=== PATIENT | female | born 1975 | race Caucasian/White ===

== ENCOUNTER 2019-03-09 11:42 | Emergency (ER) | payer OTHER ==
[2019-03-09 11:57] VITALS: TEMP 98.2; BMI 30.2
--- NOTE | 2019-03-09 12:38 | PDOC ---
History of Present Illness <Shirley Rosas - Last Filed: 03/09/19 15:32> - General History Source: Patient Exam Limitations: No Limitations - History of Present Illness Initial Comments: 43 y/o F, w/ no significant pmh, presents to the ED from her PCP's office for an abnormal ekg and difficulty breathing. As per pt, she recently recovered from a cold with productive cough and has since been experiencing some difficulty breathing. In the ED, r/p EKG shows nsr with no abnormal findings. Pt 's is no longer symptomatic and only experienced a 3/10 chest pain in the PCP office. Denies f/c/n/v/d/abdominal pain. 03/09/19 12:58 03/09/19 13:00 Associated Symptoms: reports: denies symptoms, chest pain (mild, 3/10, now resolved ), shortness of breath (mild, now resolved). denies: cough, diaphoresis, fever/chills, headaches, nausea/vomiting <Neo Baugh - Last Filed: 03/09/19 15:35> - General Chief Complaint: Chest Pain Stated Complaint: CP Time Seen by Provider: 03/09/19 12:18 Past History <Shirley Rosas - Last Filed: 03/09/19 15:32> - Travel Traveled outside of the country in the last 30 days: No Close contact w/someone who was outside of country & ill: No - Past Medical History Anemia: No Asthma: No Cardiac Disorders: No COPD: No Other medical history: DENIES - Immunization History Immunization Up to Date: No - Psycho Social/Smoking Cessation Hx Smoking History: Unknown if ever smoked Hx Alcohol Use: No Drug/Substance Use Hx: No <Neo Baugh - Last Filed: 03/09/19 15:35> - Past Medical History Allergies/Adverse Reactions: Allergies Allergy/AdvReac Type Severity Reaction Status Date / Time No Known Allergies Allergy Verified 03/09/19 11:51 Home Medications: Ambulatory Orders NK [No Known Home Medication] 03/09/19 Review of Systems - Review of Systems Able to Perform ROS?: Yes Is the patient limited Uzbek proficient: No Constitutional: Yes: Symptoms Reported. No: Chills, Diaphoresis, Fever, Loss of Appetite HEENTM: Yes: Symptoms Reported. No: Blurred Vision Respiratory: Yes: Symptoms reported, Shortness of Breath (mild). No: Cough, Orthopnea, Wheezing, Productive cough Cardiac (ROS): Yes: Symptoms Reported, Chest Pain (mild, 3/10) ABD/GI: Yes: Symptoms Reported. No: Diarrhea, Nausea, Vomiting : Yes: Symptoms Reported. No: Dysuria <Neo Baugh - Last Filed: 03/09/19 15:35> *Physical Exam - Vital Signs Last Vital Signs Temp Pulse Resp BP Pulse Ox 98.2 F 81 18 125/85 99 03/09/19 11:45 03/09/19 15:25 03/09/19 15:25 03/09/19 15:25 03/09/19 15:25 <Shirley Rosas - Last Filed: 03/09/19 15:32> - Vital Signs Last Vital Signs Temp Pulse Resp BP Pulse Ox 98.2 F 75 18 122/90 100 03/09/19 11:45 03/09/19 11:45 03/09/19 11:45 03/09/19 11:45 03/09/19 11:45 - Physical Exam General Appearance: Yes: Nourished, Appropriately Dressed HEENT: positive: EOMI, TRAN, Normal ENT Inspection, Pharynx Normal Neck: positive: Trachea midline, Normal Thyroid, Supple. negative: Lymphadenopathy (R), Lymphadenopathy (L) Respiratory/Chest: positive: Lungs Clear, Normal Breath Sounds. negative: Crackles, Wheezing Cardiovascular: positive: Regular Rhythm, Regular Rate, S1, S2. negative: Murmur, Gallop/S3, Gallop/S4 Vascular Pulses: Dorsalis-Pedis (R): 2+, Doralis-Pedis (L): 2+ Gastrointestinal/Abdominal: positive: Normal Bowel Sounds, Soft <Neo Baugh - Last Filed: 03/09/19 15:35> ED Treatment Course - LABORATORY CBC & Chemistry Diagram: 03/09/19 12:50 03/09/19 12:50 - ADDITIONAL ORDERS Additional order review: Laboratory Results 03/09/19 03/09/19 12:50 12:34 Sodium 139 Potassium 4.0 Chloride 109 H Carbon Dioxide 23 Anion Gap 8 BUN 9.8 Creatinine 0.6 Est GFR (CKD-EPI)AfAm 129.39 Est GFR (CKD-EPI)NonAf 111.64 Random Glucose 84 Calcium 8.6 Total Bilirubin 0.3 AST 23 ALT 32 Alkaline Phosphatase 61 Troponin I < 0.02 B-Natriuretic Peptide 24.2 Total Protein 7.7 Albumin 3.7 Serum , Qual Negative 03/09/19 12:50 RBC 4.49 MCV 85.2 MCHC 33.5 RDW 14.1 MPV 7.2 L Neutrophils % 60.2 Lymphocytes % 31.1 Monocytes % 6.3 Eosinophils % 1.6 Basophils % 0.8 - RADIOLOGY Radiology Studies Ordered: Category Date Time Status CHEST PA & LAT [RAD] Stat Radiology 03/09/19 12:23 Taken <Shirley Rosas - Last Filed: 03/09/19 15:32> - LABORATORY CBC & Chemistry Diagram: 03/09/19 12:50 03/09/19 12:50 <Neo Baugh - Last Filed: 03/09/19 15:35> Medical Decision Making - Medical Decision Making 43 y/o F, w/ no significant pmh, presents to the ED from her PCP's office for an abnormal ekg and difficulty breathing #Mild atypical chest pain r/o ACS trops ordered r/p EKG : NSR #Difficulty breathing likely 2/2 to recent URI now resolved CBC, CMP CXR ordered 03/09/19 13:02 <Neo Baugh - Last Filed: 03/09/19 15:35> Discharge - Discharge Information Problems reviewed: Yes - Admission No <Shirley Rosas - Last Filed: 03/09/19 15:32> <Neo Baugh - Last Filed: 03/09/19 15:35> - Discharge Information Clinical Impression/Diagnosis: Chest pain Qualifiers: Chest pain type: unspecified Qualified Code(s): R07.9 - Chest pain, unspecified Condition: Improved Disposition: HOME - Follow up/Referral Referrals: [facility] [place] [facility] [Provider Group] [facility] [Provider Group] Patrick Martínez MD [Staff Physician] - - Patient Discharge Instructions Patient Printed Discharge Instructions: DI for Chest Pain Additional Instructions: 1) Please follow-up with your primary care doctor in the next 1-2 days. Please call tomorrow for for any urgent issues. 2) You were given a copy of the tests performed today. Please bring the results with you and review them with your primary care doctor. Your laboratory / imaging results were normal, your EKG was within normal limits without abnormalities with your cardiac enzymes 3) If you have any worsening of symptoms or any other concerns please return to the ED immediately. Return if worsening symptoms including fevers, headache, vomiting, visual or hearing disturbances, abdominal pain, chest pain, shortness of breath, syncope, dehydration, inability to take things by mouth/vomiting, altered mental status, or worsening concerning symptoms. 4) Please continue taking your home medications as directed. Stay well hydrated and rest adequately. Make an appointment. If you cannot follow-up with your primary care doctor please return to the ED 1) Gilson un seguimiento con tenorio mdico de atencin primaria en los prximos 1-2 [place]. Llame maana para cualquier problema urgente. 2) Le dieron haydee copia de las pruebas realizadas hoy. Traiga los resultados con usted y revselos con tenorio mdico de atencin primaria. Romero resultados de laboratorio / imagen fueron normales, tenorio ECG estuvo dentro de los lmites normales sin anormalidades con romero enzimas cardacas 3) Si tiene algn empeoramiento de los sntomas o cualquier otra inquietud, regrese al servicio de urgencias de inmediato. Regrese si empeora los sntomas, madhu fiebre, dolor de ethan, vmitos, trastornos visuales o auditivos, dolor abdominal, dolor en el pecho, falta de aliento, sncope, deshidratacin, incapacidad para fermin cosas por la boca / vmitos, estado mental alterado o empeoramiento de los sntomas. 4) Contine tomando romero medicamentos caseros segn las indicaciones. Mantngase bruce hidratado y descanse adecuadamente. Gilson haydee sanket. Si no puede hacer un seguimiento con tenorio mdico de atencin primaria, regrese al servicio de urgencias
--- NOTE | 2019-03-09 13:06 | PDOC ---
Attending Attestation - Resident Resident Name: Neo Baugh - ED Attending Attestation I have performed the following: I have examined & evaluated the patient, The case was reviewed & discussed with the resident, I agree w/resident's findings & plan - HPI HPI: 03/09/19 15:33 43 y/o F, w/ no significant pmh, presents to the ED from her PCP's office for an abnormal ekg and difficulty breathing. As per pt, she recently recovered from a cold with productive cough and has since been experiencing some difficulty breathing. In the ED, r/p EKG shows nsr with no abnormal findings. Pt 's is no longer symptomatic and only experienced a 3/10 chest pain in the PCP office. Denies f/c/n/v/d/abdominal pain. - Physicial Exam PE: 03/09/19 13:05 Agree with the resident's HPI and PE as documented in the electronic medical record. NAD, well appearing, EOMI, PERRL, nl conjunctiva, anicteric; neck supple. lungs clear, RRR, no murmur, abdomen soft nontender. no rebound, guarding. Back nontender. GARAY x4, no focal neuro deficits. No peripheral edema. normal color for ethnicity, WWP. 03/09/19 15:33 - Medical Decision Making 03/09/19 15:31 Vital Signs Temp Pulse Resp BP Pulse Ox 98.2 F 81 18 125/85 99 03/09/19 11:45 03/09/19 15:25 03/09/19 15:25 03/09/19 15:25 03/09/19 15:25 DDx chest pain: ACS, coronary vasospasm, NSTEMI, arrhythmia, unstable angina, PE , dissection, PUD, esophageal spasm, GERD, gastritis, costochondritis, pneumonia , pleurisy, pericarditis/myocarditis. dehydration, electrolyte/metabolic derangements. Considered but clinically doubt based on HPI and PE: Low suspicion for pulmonary embolism or dissection. PERC negative, low suspicion for PE. EKG normal sinus rhythm, no interval abnormalities, narrow QRS, ST and T wave segments and morphology normal. Nonspecific T wave abnormalities, unchanged from prior Chest pain HEART score 1 which denotes Low risk and probability for ACS, less than 1% risk for MACE at 4-6 wks labs and lytes, trop wnl, EKG w/o elevations or depressions CXR is clear no active cp or sob. Pt to be discharged in stable condition. Patient made aware of clinical impression, treatment recommendations and disposition plan, return precautions discussed (including but not limited to new or persistent/worsening symptoms, pain, fevers, or signs of infection, chest pain, respiratory distress, inability to tolerate oral intake, dehydration, syncope, or neurologic changes) . Follow up with PMD and/or surgical instrument repair specialist as recommended, follow up information provided, take medications as instructed for duration of time. continue with supportive care, avoid triggers and precipitants. All questions answered to patient's satisfaction and expressed understanding and comfort with this. At the time of discharge, the patient is alert, clinically improved, tolerating po and verbalizes understanding of instructions, satisfied with the care received and felt comfortable with the plan. Patient does not suffer from an acute life-threatening medical condition at this time and is safe for outpatient follow-up. 03/09/19 15:34 03/09/19 15:34 Heart Score/ECG Review - History History: Slightly suspicious - Electrocardiogram EKG: Non specific repolarization disturbance - Age Age: </= 45 - Risk Factors Based on the list above the patient has:: No risk factors known - Troponin Troponin: </= normal limit - Score Heart Score - Total: 1 #1 ECG reviewed & interpreted by me at: 11:55 General ECG Interpretation: Sinus Rhythm, Normal Rate, Normal Intervals 03/09/19 13:06 EKG normal sinus rhythm at 62 bpm, no interval abnormalities, narrow QRS, ST and T wave segments and morphology normal. No elevations or depressions of ST segments. Nonspecific T wave abnormality in III only.
[2019-03-09 13:11] LABS: BASO % 0.8 % (0-2.0); EOS % 1.6 % (0-4.5); HEMATOCRIT 38.2 % (32.4-45.2); HEMOGLOBIN 12.8 GM/dL (10.7-15.3); LYMPH % 31.1 % (8-40); MCH 28.5 pg (25.7-33.7); MCHC 33.5 g/dl (32.0-36.0); MEAN CELL VOLUME 85.2 fl (80-96); MEAN PLT VOLUME 7.2 fl (7.5-11.1); MONO % 6.3 % (3.8-10.2); NEUT % 60.2 % (42.8-82.8); PLATELET COUNT 261 K/MM3 (134-434); RBC 4.49 M/mm3 (3.60-5.2); RDW 14.1 % (11.6-15.6); WHITE BLOOD COUNT 7.3 K/mm3 (4.0-10.0)
[2019-03-09 13:53] LABS: ALBUMIN 3.7 g/dl (3.4-5.0); ALK PHOS 61 U/L (45-117); ANION GAP 8 MMOL/L (8-16); BILIRUBIN,TOTAL 0.3 mg/dL (0.2-1); BLOOD UREA NITROGEN 9.8 mg/dL (7-18); CALCIUM 8.6 mg/dL (8.5-10.1); CHLORIDE 109 mmol/L (98-107); CO2 23 mmol/L (21-32); CREATININE 0.6 mg/dL (0.55-1.3); GLUCOSE,RANDOM 84 mg/dL (74-106); N-TERMINAL BNP 24.2 pg/ml (5-125); SGOT/AST 23 U/L (15-37); SGPT/ALT 32 U/L (13-61); SODIUM 139 mmol/L (136-145); TOT PROT 7.7 g/dl (6.4-8.2)
[2019-03-09 15:26] VITALS: BP 125/85; PULSE 81
--- NOTE | 2019-03-10 10:16 | EKG ---
Test Reason : Blood Pressure : / mmHG Vent. Rate : 062 BPM Atrial Rate : 062 BPM P-R Int : 152 ms QRS Dur : 082 ms QT Int : 412 ms P-R-T Axes : 032 017 022 degrees QTc Int : 418 ms NORMAL SINUS RHYTHM NORMAL ECG NO PREVIOUS ECGS AVAILABLE Confirmed by Otoniel Mercado MD ([id number]) on 03/10/2019 10:16:27 AM Referred By: Confirmed By:Otoniel Mercado MD
== END 2019-03-09 15:35 | disposition home or self-care (01) ==
LOC: JER 11:42
DX: R07.9 Chest pain, unspecified (principal)
CPT/HCPCS: 36415; 71046-TC-FY; 80053; 83880; 84484; 84703; 85025; 93005; 93010; 99284-25

== ENCOUNTER 2019-04-22 18:02 | Emergency (ER) | payer OTHER ==
[2019-04-22 18:22] VITALS: BP 113/79; PULSE 72; TEMP 98; BMI 30.9
[2019-04-22] MEDS ORDERED: SODIUM CHLORIDE 1,000 ML IV STA (18:22)
--- NOTE | 2019-04-22 18:22 | PDOC ---
Rapid Medical Evaluation Time Seen by Provider: 04/22/19 18:17 Medical Evaluation: Allergies Allergy/AdvReac Type Severity Reaction Status Date / Time No Known Allergies Allergy Verified 03/09/19 11:51 04/22/19 18:17 Pt presents to the ER for abdominal pain for 3 days. She states that the pain is mostly on the R side. Denies vomiting or diarrhea Exam: TTP of the R upper and R lower quadrant. No CVA tenderness Orders: labs, urine IVF Pt to proceed to the ER for further evaluation Discharge Disposition - Diagnosis Abdominal pain Qualifiers: Abdominal location: right upper quadrant Qualified Code(s): R10.11 - Right upper quadrant pain - Referrals - Patient Instructions - Post Discharge Activity
[2019-04-22 19:05] LABS: BASO % 0.4 % (0-2.0); EOS % 1.8 % (0-4.5); HEMATOCRIT 35.7 % (32.4-45.2); LYMPH % 36.9 % (8-40); MCH 29.2 pg (25.7-33.7); MCHC 33.8 g/dl (32.0-36.0); MEAN CELL VOLUME 86.5 fl (80-96); MEAN PLT VOLUME 7.1 fl (7.5-11.1); MONO % 7.2 % (3.8-10.2); NEUT % 53.7 % (42.8-82.8); PLATELET COUNT 320 K/MM3 (134-434); RBC 4.12 M/mm3 (3.60-5.2); RDW 14.3 % (11.6-15.6); WHITE BLOOD COUNT 7.1 K/mm3 (4.0-10.0)
[2019-04-22 19:53] LABS: ALBUMIN 3.7 g/dl (3.4-5.0); BILIRUBIN,TOTAL 0.8 mg/dL (0.2-1); BLOOD UREA NITROGEN 16.3 mg/dL (7-18); CREATININE 0.7 mg/dL (0.55-1.3); POTASSIUM 3.9 mmol/L (3.5-5.1); TOT PROT 7.6 g/dl (6.4-8.2)
[2019-04-22 20:27] LABS: PH,URINE 5.5 (5.0-8.0); URINE APPEARANCE CLEAR; URINE BILIRUBIN NEGATIVE (NEGATIVE); URINE COLOR YELLOW; URINE GLUCOSE (UA) NEGATIVE (NEGATIVE); URINE KETONE TRACE (NEGATIVE); URINE LEUK ESTERASE NEGATIVE (NEGATIVE); URINE NITRITE NEGATIVE (NEGATIVE); URINE PROTEIN NEGATIVE (NEGATIVE); URINE UROBILINOGEN 0.2 mg/dL (0.2-1.0)
--- NOTE | 2019-04-22 20:44 | PDOC ---
History of Present Illness - General Chief Complaint: Pain Stated Complaint: ABDOMINAL PAIN Time Seen by Provider: 04/22/19 18:17 History Source: Patient Exam Limitations: Language Barrier - History of Present Illness Initial Comments: Tricia Valentin is a 44 yo obese F who denies having any pmh who presents to the [facility] er with her two daughters because she has been experiencing 3 days of RUQ and RLQ abdominal pain. She states she has also occasionally been experiencing blood around her stool. She endorses chronic constipation but denies having any diarrhea. She states this pain has been constant for the past 3 hours which prompted her to come to the ER. Last Bowel movement today at 12 pm, streaks of blood around it She denies any nausea, vomiting, worsening of her pain after eating, denies recent travel. PCP: Thai Mejia PSH: Multiple C-sections Social Hx: Denies smoking, drinking, or other substance abuse Past History - Past Medical History Allergies/Adverse Reactions: Allergies Allergy/AdvReac Type Severity Reaction Status Date / Time No Known Allergies Allergy Verified 04/22/19 18:20 Home Medications: Ambulatory Orders Hydrocortisone [Preparation H] 26 gm TP PRN 10 Days #1 cream..g. 04/22/19 Polyethylene Glycol 3350 [Miralax (For Daily Use) -] 17 gm PO ONCE #1 bottle 08/04 Anemia: No Asthma: No Cardiac Disorders: No COPD: No - Immunization History Immunization Up to Date: No - Psycho Social/Smoking Cessation Hx Smoking History: Never smoked Hx Alcohol Use: No Drug/Substance Use Hx: No Review of Systems - Review of Systems Able to Perform ROS?: Yes Comments:: CONSTITUTIONAL: Absent: fever, no chills, no fatigue EYES: Absent: visual changes ENT: Absent: ear pain, no sore throat CARDIOVASCULAR: Absent: chest pain, no palpitations RESPIRATORY: Absent: cough, no SOB GI: Present: Abdominal pain, constipation Absent: no nausea, no vomiting, no diarrhea GENITOURINARY: Absent: dysuria, no frequency, no hematuria MUSKULOSKELETAL: Absent: back pain, no arthralgia, no myalgia SKIN: Absent: rash NEURO: Absent: headache *Physical Exam - Vital Signs Last Vital Signs Temp Pulse Resp BP Pulse Ox 98 F 72 16 113/79 99 04/22/19 18:20 04/22/19 18:20 04/22/19 18:20 04/22/19 18:20 04/22/19 18:20 - Physical Exam GENERAL: Well-appearing, well-nourished. No apparent distress. HEENT: Normocephalic, atraumatic. PERRL, EOM intact. CARDIOVASCULAR: Normal S1, S2. Regular rate and rhythm. PULMONARY: No evidence of respiratory distress. Lungs clear to auscultation bilaterally. No wheezing, rales or rhonchi. ABDOMEN: Mild Right sided abdominal TP. Soft, non-distended, Normal bowel sounds. PELVIC: External genitalia normal without lesions. Vaginal vault is clear without blood or discharge. Cervix is long and closed. No cervical motion tenderness. Uterus is nontender and normal in size. Adnexa are nontender and without masses. RECTAL: There are multiple internal and external hemorrhoids which are TTP. None are swollen, erythematous, or thrombosed. EXTREMITIES: Normal ROM in all four extremities. No gross deformities. SKIN: Warm, dry. No rash NEUROLOGICAL: No focal neurological deficits. ED Treatment Course - LABORATORY CBC & Chemistry Diagram: 04/22/19 18:06 04/22/19 18:36 - ADDITIONAL ORDERS Additional order review: Laboratory Results 04/22/19 04/22/19 04/22/19 20:00 20:00 18:36 Sodium 139 Potassium 3.9 Chloride 105 Carbon Dioxide 26 Anion Gap 8 BUN 16.3 Creatinine 0.7 Est GFR (CKD-EPI)AfAm 122.13 Est GFR (CKD-EPI)NonAf 105.37 Random Glucose 97 Calcium 9.0 Total Bilirubin 0.8 AST 37 ALT 65 H Alkaline Phosphatase 69 Total Protein 7.6 Albumin 3.7 Lipase 291 Urine Color Yellow Urine Appearance Clear Urine pH 5.5 Ur Specific [place] 1.025 Urine Protein Negative Urine Glucose (UA) Negative Urine Ketones Trace H Urine Blood Negative Urine Nitrite Negative Urine Bilirubin Negative Urine Urobilinogen 0.2 Ur Leukocyte Esterase Negative Urine HCG, Qual Negative 04/22/19 18:06 RBC 4.12 MCV 86.5 MCHC 33.8 RDW 14.3 MPV 7.1 L Neutrophils % 53.7 Lymphocytes % 36.9 Monocytes % 7.2 Eosinophils % 1.8 Basophils % 0.4 - RADIOLOGY Radiology Studies Ordered: Category Date Time Status ABDOMEN US -LIMITED [US] Stat Ultrasound 04/22/19 20:16 Taken Medical Decision Making - Medical Decision Making Tricia Valentin is a 44 yo obese F who denies having any pmh who presents to the [facility] er with her two daughters because she has been experiencing 3 days of RUQ and RLQ abdominal pain. She states she has also occasionally been experiencing blood around her stool. She endorses chronic constipation but denies having any diarrhea. She states this pain has been constant for the past 3 hours which prompted her to come to the ER. Last Bowel movement today at 12 pm, streaks of blood around it She denies any nausea, vomiting, worsening of her pain after eating, denies recent travel. Vital Signs Temp Pulse Resp BP Pulse Ox 98 F 72 16 113/79 99 04/22/19 18:20 04/22/19 18:20 04/22/19 18:20 04/22/19 18:20 04/22/19 18:20 DDx IBNLT: cholecystitis, pancreatitis, biliary colic, electrolyte/metabolic disturbance, renal stone, UTI/Pylo, constipation, hemorrhoids, gastritis, PUD, appendicitis Plan: Labs, Urine, Iv hydration, analgesia, RUQ US, CTAP, re-assess Labs + Urine: Unremarkable. Mild ketonuria, neg Hcg. ruq us: Unremarkable CTAP: Unremarkable Re-assessment: Patient feels better after supportive care Dispo: The blood in the toilet is likely due to hemorrhoids. The abdominal pain might be constipation VS gastritis. - Sending preparation H and miralax to pharmacy - GI and PCP fu Discharge - Discharge Information Problems reviewed: Yes Clinical Impression/Diagnosis: External hemorrhoid Abdominal pain Qualifiers: Abdominal location: right upper quadrant Qualified Code(s): R10.11 - Right upper quadrant pain Constipation Qualifiers: Constipation type: unspecified constipation type Qualified Code(s): K59.00 - Constipation, unspecified Condition: Stable Disposition: HOME - Admission No - Additional Discharge Information Prescriptions: Hydrocortisone [Preparation H] 26 gm TP PRN 10 Days #1 cream..g. Polyethylene Glycol 3350 [Miralax (For Daily Use) -] 17 gm PO ONCE #1 bottle - Follow up/Referral Referrals: Juve Lyons MD [Staff Physician] - [facility] [place] [facility] [Provider Group] - Patient Discharge Instructions Patient Printed Discharge Instructions: Hemorrhoids (Alternative Therapy), DI for Hemorrhoids, Acute Abdominal Pain Additional Instructions: You came into the ER with abdominal pain and blood around your stool. The blood around your stool is because you have hemorrhoids. Please read the attached handout for further explanation. We are sending a medication to your pharmacy called preparation H. This will help take care of your hemorroids. We are sending another medication called miralax to help you with constipation. Please schedule a follow up appointment [facility] Dr. Lyons the software qa manager ( Stomach doctor) in the next 3 to 5 days to make sure you are feeling well and being taken care of. Come back to the ER immediately with any new or worsening concerns. Print Language: ANGOLAN - Post Discharge Activity
[2019-04-22] MEDS ORDERED: FAMOTIDINE 20 MG/50 ML IVPB 20 MG/50 ML MG IVPB ONE ×2 (21:02→21:17)
[2019-04-22] MEDS ORDERED: MAG HYDROX/AL HYDROX/SIMETH -MYLANTA- ORAL SUSPENSION PO ONE (21:02)
[2019-04-22] MEDS ORDERED: ACETAMINOPHEN 1000 MG/100 ML VIAL (NON FORMULARY) IVPB ONE (21:02)
[2019-04-22] MEDS ORDERED: MAG HYDROX/AL HYDROX/SIMETH 30 ML UNIT-DOSE CUP ONE (21:17)
[2019-04-22] MEDS ORDERED: ACETAMINOPHEN INJECTION 100 ML IVPB ONE (21:17)
--- NOTE | 2019-04-22 22:20 | PDOC ---
Documentation entered by Emilio Abreu SCRIBE, acting as scribe for Salma Estevez DO. Salma Estevez DO: This documentation has been prepared by the Lois tabares Elijah, SCRIBE, under my direction and personally reviewed by me in its entirety. I confirm that the documentation accurately reflects all work, treatment, procedures, and medical decision making performed by me. Attending Attestation - Resident Resident Name: Kush Jacobson - ED Attending Attestation I have performed the following: I have examined & evaluated the patient, The case was reviewed & discussed with the resident, I agree w/resident's findings & plan - HPI HPI: 04/22/19 22:09 Patient is a 44 year old female with no reported significant past medical history who presents today with abdominal pain for the last x3 days. Patient reports that the pain is right sided and she associates this with blood in her stool. Patient also notes the pain has been constant for x3 hours which prompted the visit to the ED. Denies nausea, vomiting, diarrhea and constipation. Allergies: NKA - Physicial Exam PE: 04/22/19 22:12 Constitutional: Awake, alert, oriented. No acute distress. Head: Normocephalic. Atraumatic Eyes: PERRL. EOMI. Conjunctivae are not pale. ENT: Mucous membranes are moist and intact. Posterior pharynx without exudates or erythema. Uvula midline. Neck: Supple. Full ROM. No lymphadenopathy. Cardiovascular: Regular rate. Regular rhythm. S1, S2 regular. Distal pulses are 2+ and symmetric. Pulmonary/Chest: No evidence of respiratory distress. Clear to auscultation bilaterally No wheezing, rales or rhonchi. Abdominal: Soft and non-distended. There is no tenderness. No rebound, guarding or rigidity. No organomegaly. No palpable masses. Good bowel sounds. Rectal: +Hemorrhoids Back: + Right sided CVA tenderness. Musculoskeletal: No edema. No cyanosis. No clubbing. Full range of motion in all extremities. Nocalf tenderness. Radial/pedal pulses are intact and 2+ bilaterally Skin: Skin is warm and dry. No petechiae. No purpura. Neurological: Alert and oriented to person, place, and time. Cranial nerves II -XII are grossly intact. Normal speech. Strength is grossly symmetric. No sensory deficits. - Medical Decision Making 04/22/19 22:19 a/p: 44yo female with 3 days of R sided abd pain and blood in her stool -pt with RUQ, R cva ttp -pt with hx of prior c sections in the past -pt denies n/v/d -pt denies f/c -labs from [facility] reviewed -ultrasound without acute findings -ct abd/pelvis pending -pt with hemorrhoids on rectal exam 04/22/19 22:20 ct without acute findings will dc with miralax and preparation H for hemorrhoids and GI followup
== END 2019-04-22 23:29 | disposition home or self-care (01) ==
LOC: JER 18:02
PROC: 3E033GC Introduction of Other Therapeutic Substance into Peripheral Vein, Percutaneous Approach (ICD-10-PCS; principal; 2019-04-22)
PROC: 3E033NZ Introduction of Analgesics, Hypnotics, Sedatives into Peripheral Vein, Percutaneous Approach (ICD-10-PCS; 2019-04-22)
DX: K64.4 Residual hemorrhoidal skin tags (principal); K59.00 Constipation, unspecified; R10.9 Unspecified abdominal pain
CPT/HCPCS: 36415; 74177-TC; 76705-TC; 80053; 81003; 83690; 84703; 85025; 87086; 99283-25; J0131; J7030; Q9967

== ENCOUNTER 2021-02-24 11:41 | Emergency (ER) | payer OTHER ==
[2021-02-24 12:25] VITALS: BP 123/87; PULSE 76; TEMP 98.3; BMI 30.2
[2021-02-24 13:54] LABS: EPI CELLS 30 /uL (0-25.1); HYALINE CASTS 2 /uL (0-3.1); PH,URINE 5.5 (5.0-8.0); URINE APPEARANCE CLOUDY; URINE BACTERIA 538 /uL (0-1359); URINE BILIRUBIN NEGATIVE (NEGATIVE); URINE COLOR YELLOW; URINE GLUCOSE (UA) NEGATIVE (NEGATIVE); URINE KETONE 1+ (NEGATIVE); URINE LEUK ESTERASE TRACE (NEGATIVE); URINE NITRITE NEGATIVE (NEGATIVE); URINE PROTEIN NEGATIVE (NEGATIVE); URINE UROBILINOGEN 0.2 mg/dL (0.2-1.0); URINE WBC 17 /uL (0-25.8)
[2021-02-24 13:55] LABS: URINE RBC 44.5 /uL (0-23.9); YEAST NON SEEN (NEGATIVE)
[2021-02-24 14:08] LABS: BASO % 0.3 % (0-2.0); EOS % 0.8 % (0-4.5); HEMOGLOBIN 12.5 GM/dL (10.7-15.3); LYMPH % 19.5 % (8-40); MCH 29.7 pg (25.7-33.7); MCHC 33.8 g/dl (32.0-36.0); MEAN PLT VOLUME 7.2 fl (7.5-11.1); NEUT % 74.4 % (42.8-82.8); PLATELET COUNT 310 10^3/uL (134-434); RBC 4.21 M/mm3 (3.60-5.2); RDW 14.2 % (11.6-15.6); WHITE BLOOD COUNT 7.1 K/mm3 (4.0-10.0)
[2021-02-24 14:43] LABS: CALCIUM 9.4 mg/dL (8.5-10.1)
[2021-02-24 14:44] LABS: ALBUMIN 3.8 g/dl (3.4-5.0)
[2021-02-24 14:47] LABS: CREATININE 0.7 mg/dL (0.55-1.3)
[2021-02-24 14:48] LABS: BILIRUBIN,TOTAL 0.4 mg/dL (0.2-1); TOT PROT 7.8 g/dl (6.4-8.2)
== END 2021-02-24 14:32 | disposition left against medical advice (07) ==
LOC: JER 11:41
DX: N39.0 Urinary tract infection, site not specified (principal)
CPT/HCPCS: 36415; 80053; 81003; 84703; 85025; 87086; 99284-25